=== PATIENT | female | born 1990 ===

== ENCOUNTER 2024-01-31 19:38 | Inpatient (IN) | payer OTHER ==
[2024-01-31 20:40] LABS: INR 0.92 (0.83-1.09); PROTHROMBIN TIME (PATIENT) 10.6 SEC (9.7-13.0)
[2024-01-31 20:43] LABS: ACTIVATED PTT 23.8 SECONDS (25.2-36.5)
[2024-01-31 20:43] LABS: HEMATOCRIT 27.4 % (32.4-45.2); HEMOGLOBIN 8.3 GM/dL (10.7-15.3); MCHC 30.3 g/dl (32.0-36.0); MEAN CELL VOLUME 57.2 fl (80-96); MEAN PLT VOLUME 9.6 fl (7.5-11.1); PLATELET COUNT 228 10^3/uL (134-434); RDW 20.4 % (11.6-15.6); WHITE BLOOD COUNT 10.3 K/mm3 (4.0-10.0)
[2024-01-31 20:46] LABS: POTASSIUM 4.1 mmol/L (3.5-5.1)
[2024-01-31 20:49] LABS: ALBUMIN 2.5 g/dl (3.4-5.0); BLOOD UREA NITROGEN 9.9 mg/dL (7-18); CALCIUM 9.1 mg/dL (8.5-10.1)
[2024-01-31 20:52] LABS: CREATININE 0.5 mg/dL (0.55-1.3)
[2024-01-31] MEDS: DEXTROSE 5%-LACTATED RINGERS 1,000 ML IV SCH (20:52)
[2024-01-31 20:53] LABS: ADD RBC MORPHOLOGY YES; MCH 17.3 pg (25.7-33.7)
[2024-01-31 20:54] LABS: BILIRUBIN,TOTAL 0.4 mg/dL (0.2-1); TOT PROT 6.3 g/dl (6.4-8.2)
[2024-01-31 21:19] VITALS: BMI 37.3
[2024-01-31] MEDS: MISOPROSTOL 100 MCG TABLET PV SCH (21:40)
[2024-01-31 21:56] LABS: ANISOCYTOSIS 3+; MACROCYTOSIS 0
[2024-01-31] MEDS: SODIUM CHLORIDE 500 ML IV STA (22:35)
[2024-02-01] MEDS ORDERED: LABETALOL HCL 20 MG/4 ML VIAL ONE (01:05)
[2024-02-01] MEDS: LABETALOL HCL 20 MG/4 ML VIAL IVPUSH ONE (01:11)
[2024-02-01 03:17] LABS: PH,URINE 6.5 (5.0-8.0); URINE APPEARANCE CLEAR; URINE BILIRUBIN NEGATIVE (NEGATIVE); URINE COLOR YELLOW; URINE GLUCOSE (UA) NEGATIVE (NEGATIVE); URINE KETONE NEGATIVE (NEGATIVE); URINE LEUK ESTERASE NEGATIVE (NEGATIVE); URINE NITRITE NEGATIVE (NEGATIVE); URINE PROTEIN NEGATIVE (NEGATIVE); URINE UROBILINOGEN 0.2 mg/dL (0.2-1.0)
[2024-02-01] MEDS ORDERED: LIDOCAINE HCL 1% PRESERVATIVE FREE - 30ML VIAL ONE (04:03)
[2024-02-01] MEDS ORDERED: OXYTOCIN 20 UNITS in 0.9% NS 20 UNIT/1,000 ML INFUS.BAG IV ONE (04:04)
[2024-02-01] MEDS: OXYTOCIN 20 UNITS in 0.9% NS 20 UNIT/1,000 ML INFUS.BAG IV SCH (04:36)
[2024-02-01 05:07] LABS: CORD BASE EXCESS -8.8 mmol/L (0-2); CORD HCO3 20.2 mmHg (20-29); CORD PCO2 55.3 mmHg (30-78); CORD pH 7.181 (7.14-7.44)
[2024-02-01] MEDS ORDERED: BENZOCAINE 28 GM HEMORRHOIDAL OINTMENT TP PRN (05:07)
[2024-02-01] MEDS ORDERED: WITCH HAZEL 50% (TUCKS) 40 PAD/JAR PAD TP PRN (05:07)
[2024-02-01 05:08] LABS: CORD BASE EXCESS -8.7 mmol/L (0-2); CORD HCO3 20.5 mmHg (20-29); CORD PCO2 56.9 mmHg (30-78); CORD pH 7.175 (7.14-7.44)
[2024-02-01] MEDS ORDERED: ACETAMINOPHEN 325 MG TABLET (FP) ONE (06:29)
[2024-02-01] MEDS: ACETAMINOPHEN 325 MG TABLET (FP) PO PRN (06:31)
[2024-02-01 08:04] VITALS: RESP 18
[2024-02-01] MEDS ORDERED: FERROUS SO4 325 MG TABLET (FP) ONE (08:43)
[2024-02-01] MEDS: FERROUS SO4 325 MG TABLET (FP) PO SCH (08:52)
[2024-02-01] MEDS: PRENATAL VITAMINS W/ FOLIC ACID TABLET (FP) PO SCH (09:00)
[2024-02-01] MEDS: IBUPROFEN 600 MG TABLET (FP) PO PRN (12:13)
[2024-02-02 07:12] LABS: BASO % 0.9 % (0-2.0); EOS % 0.7 % (0-4.5); HEMATOCRIT 25.1 % (32.4-45.2); HEMOGLOBIN 7.5 GM/dL (10.7-15.3); LYMPH % 27.9 % (8-40); MCHC 29.9 g/dl (32.0-36.0); MEAN CELL VOLUME 57.5 fl (80-96); MEAN PLT VOLUME 9.4 fl (7.5-11.1); MONO % 8.3 % (3.8-10.2); NEUT % 62.2 % (42.8-82.8); PLATELET COUNT 200 10^3/uL (134-434); RBC 4.36 M/mm3 (3.60-5.2); RDW 20.6 % (11.6-15.6); WHITE BLOOD COUNT 10.4 K/mm3 (4.0-10.0)
[2024-02-02 07:16] LABS: MCH 17.2 pg (25.7-33.7)
[2024-02-02] MEDS: FLU VACCINE (FLULAVAL) PF 45 MCG/0.5 ML SYRINGE 2024-2025 IM ONE (09:43)
[2024-02-02] MEDS: DOCUSATE SODIUM 100 MG CAPSULE (FP) PO SCH (13:27)
[2024-02-02 22:05] VITALS: TEMP 98.6
[2024-02-03 08:54] VITALS: BP 115/76; PULSE 78
== END 2024-02-03 13:15 | disposition home or self-care (01) | DRG 560 ==
LOC: JLDR 19:38 → J3W 02-01 08:40
PROVIDERS: ADMIT Obstetrics & Gynecology Maternal & Fetal Medicine; ATTEND Obstetrics & Gynecology Maternal & Fetal Medicine
PROC: 10E0XZZ Delivery of Products of Conception, External Approach (ICD-10-PCS; principal; 2024-02-01)
PROC: 10907ZC Drainage of Amniotic Fluid, Therapeutic from Products of Conception, Via Natural or Artificial Opening (ICD-10-PCS; 2024-02-01)
DX: O13.4 Gestational [pregnancy-induced] hypertension without significant proteinuria, complicating childbirth (principal); O41.03X0 Oligohydramnios, third trimester, not applicable or unspecified; O26.643 Intrahepatic cholestasis of pregnancy, third trimester; K83.1 Obstruction of bile duct; Z3A.38 38 weeks gestation of pregnancy; Z37.0 Single live birth
CPT/HCPCS: 36415; 36600; 59409; 80053; 81003; 82803; 85025; 85610; 85730; 86780; 86850; 86900; 86901; 88307-TC; 90656; G0008